=== PATIENT | female | born 1965 | race Caucasian/White ===

== ENCOUNTER 2022-04-28 13:54 | Emergency (ER) | payer OTHER ==
[~2022-04-28] VITALS: Ht 162.6 cm; Wt 54.4 kg
[2022-04-28] MEDS ORDERED: IBUPROFEN 600 MG TABLET ONE (15:19)
--- NOTE | 2022-04-28 15:22 | NUR ---
PT REFUSED IBUPROFEN MEDICATION; STATED THAT SHE JUST TOOK IBUPROFEN AT HOME AT AROUND [phone] BEFORE GOING TO HOSPITAL
[2022-04-28] MEDS ORDERED: IBUPROFEN 600 MG TABLET PO ONE (15:30)
[2022-04-28] MEDS ORDERED: BACI/NEOM/POLY B OINT PKT 1 UDPKT PACKET TP ONE (15:30)
--- NOTE | 2022-04-28 15:32 | NUR ---
[employer] W/ PT FOR XRAY
[2022-04-28 15:45] VITALS: BP 125/71
--- NOTE | 2022-04-28 15:54 | NUR ---
BIBS C/O R ANKLE PAIN STATED SHE WENT TO A RESTURANT AND TRIPPED AND FELL. PAIN IS 8/10 ON PAIN SCALE, PT CAME TO THE ER WITH A WHEEL CHAIR.
[2022-04-28] MEDS ORDERED: IBUP-1955 PO (16:38)
== END 2022-04-28 16:44 | disposition home or self-care (01) ==
LOC: ER 13:56
DX: S93.401A Sprain of unspecified ligament of right ankle, initial encounter (principal); S80.212A Abrasion, left knee, initial encounter; Z90.89 Acquired absence of other organs; Z98.890 Other specified postprocedural states; Z88.5 Allergy status to narcotic agent; W01.0XXA Fall on same level from slipping, tripping and stumbling without subsequent striking against object, initial encounter; Y93.89 Activity, other specified; Y92.89 Other specified places as the place of occurrence of the external cause; Y99.8 Other external cause status
CPT/HCPCS: 73610-TC